=== PATIENT | female | born 1995 | race African-American/Black ===

== ENCOUNTER 2020-08-25 15:53 | Emergency (ER) | payer MEDICAID ==
[~2020-08-25] VITALS: Ht 175.3 cm; Wt 83.0 kg
[2020-08-25 16:00] VITALS: BP 152/87
[2020-08-25] MEDS ORDERED: ASPirin 81 mg TAB PO ONE (16:15)
[2020-08-25 17:20] LABS: Basophils # (auto) 0 10 ^3/uL (0-0.2); Basophils % (auto) 0.5 % (0.0-2.0); Eosinophils # (auto) 0.1 10 ^3/uL (0-0.8); Hemoglobin 13.8 g/dL (12.2-16.2); Lymphocytes # (auto) 2.3 10 ^3/uL (0.4-5.4); Lymphocytes % (auto) 23.9 % (10.0-50.0); Red Cell Distribution Width 14.5 % (11.8-14.3)
[2020-08-25 17:23] LABS: Eosinophils % (auto) 1.1 % (0.0-7.0); Mean Corpuscular Hemoglobin 26.4 pg (28.0-32.0); Mean Corpuscular Hgb Conc. 35.3 g/dL (32.0-36.0); Mean Corpuscular Volume 74.7 fL (80.0-100.0); Monocytes % (auto) 9.9 % (0.0-12.0); Neutrophils # (auto) 6.2 10 ^3/uL (1.6-8.6); Neutrophils % (auto) 64.6 % (37.0-80.0); Nucleated Red Blood Cells % 0.7 %; Platelet Count (auto) 313 10^3/uL (140-450); Red Blood Cells 5.22 10^6/uL (4.0-5.20); White Blood Cell 9.6 10^3/uL (4.4-10.8)
[2020-08-25 17:41] LABS: Chloride 107 mmol/L (98-107); Potassium 4.1 mmol/L (3.5-5.1); Sodium 139 mmol/L (136-145)
[2020-08-25 17:47] LABS: Alanine Aminotransferase 17 U/L (13-56); Albumin 2.5 g/dL (3.4-5.0); Anion Gap 5 (5-15); Aspartate Aminotransferase 9 U/L (15-37); BUN/Creatinine Ratio 16.7; Blood Urea Nitrogen 10 mg/dL (7-18); Calcium 8.2 mg/dL (8.5-10.1); Carbon Dioxide 27 mmol/L (21-32); GFR African American 159 mL/min; GFR Non-African American 132 mL/min; Glucose 85 mg/dL (74-106)
[2020-08-25 17:52] LABS: Alkaline Phosphatase 68 U/L (45-117); Bilirubin, Total 0.3 mg/dL (0.2-1.0); Total Protein 6.8 g/dL (6.4-8.2)
== END 2020-08-25 19:30 | disposition home or self-care (01) ==
LOC: ER 15:53
DX: R07.89 Other chest pain (principal); E44.0 Moderate protein-calorie malnutrition; Z68.27 Body mass index [BMI] 27.0-27.9, adult
CPT/HCPCS: 36415; 71045; 80053; 84484; 85025; 93005